=== PATIENT | female | born 1965 | race Caucasian/White ===

== ENCOUNTER 2016-07-29 12:45 | Inpatient (IN) | payer BC ==
[~2016-07-29] VITALS: Ht 162.6 cm; Wt 83.9 kg
--- NOTE | ~2016-07-29 | ECH ---
Transthoracic Echocardiography Report (TTE) Demographics Patient Name REINA LONDON Date of Study 07/31/2016 Patient Number [id number] Visit Number [id number] Date of 1965 Room Number 418 Accession Number [id number] Gender Female Age 51 year(s) Referring Andree Aguilar MD Copy Chief Lili Claros Physician Nathan Bolton RDCS, MD Physician Interpreting Saul KOROMA Hat Mender Physician Gurdeep Supervising Ordering Physician Andree Aguilar MD, MD/P Nurse Stress Engine Turner Conclusions Contractility Score Summary Normal Left Ventricular contractility was noted. Summary Technically good exam. The estimated left ventricular ejection fraction is 65%. The interventricular septum is mildly flattened which is consistent with right ventricular pressure / and or volume overload. The right atrium is mildly dilated. Mild-moderate tricuspid regurgitation by color Doppler. There is moderate pulmonary hypertension. The pulmonary pressure (RVSP) is 48 mmHg. Moderately dilated right ventricle with mildly reduced systolic function. Recommendation The patient will be given the results of this study by the physician who ordered the exam. Procedure Type of Study TTE procedure:Echo Complete SF. Procedure Date Date: 07/31/2016 Start: 11:39 AM Technical Quality: Good visualization Indications:Pulmonary embolus and Elevated Troponin. Appropriate Use Criteria: 9 Height: 64 inches Weight: 186 pounds BSA: 1.9 m Rhythm: Irregular HR: 111 bpm BP: 114/73 mmHg M-Mode/2D Measurements LV Diastolic Dimension: 4.28 cm LV Systolic Dimension: 2.82 cm LV Septum Diastolic: 0.82 cm LV PW Diastolic: 0.78 cm AO Root Dimension: 3.28 cm Cardiac Output: 4.58 l/min LA Dimension: 2.96 cm Cardiac Index: 2.41 l/min*m RV Diastolic Dimension: 4.41 cm LA volume index: 21 ml/m LVOT: 1.96 cm LVOT VTI: 13.69 cm RV Base: 3.2 cm LV Stroke volume: 41.28 ml RV Mid: 42 cm LV Stroke volume index: 21.73 ml/m TAPSE: 1.9 cm TDI-S': 14 cm/s Doppler Measurements AV Peak Velocity: 1.4 m/s MV Peak E-Wave: 0.73 m/s AV Peak Gradient: 7.84 mmHg MV Peak A-Wave: 0.57 m/s AV Mean Gradient: 4.02 mmHg MV E/A Ratio: 1.29 LVOT Peak Velocity: 0.93 m/s MV P1/2t: 43.4 msec AV Area (Continuity):2.02 cm MV Deceleration Time: 149.5 msec TR Velocity:3.26 m/s MV Area (PHT): 5.07 cm TR Gradient:42.51 mmHg PV Peak Velocity: 1.32 m/s Estimated RAP:5 mmHg PV Peak Gradient: 6.97 mmHg Estimated RVSP: 48 mmHg Estimated PASP: 47.51 mmHg E' Septal Velocity: 0.13 m/s A' Lateral Velocity: 0.1 m/s E' Lateral Velocity: 0.13 m/s RA Area: 18.21 cm Findings Left Ventricle Normal left ventricle size and function. Diastolic assessment reveals normal relaxation. The interventricular septum is mildly flattened which is consistent with right ventricular pressure / and or volume overload. Right Ventricle Moderately dilated right ventricle with mildly reduced systolic function. Left Atrium Normal left atrial size. Right Atrium The right atrium is mildly dilated. Mitral Valve Normal mitral valve structure and function. Trivial mitral regurgitation by color Doppler. Aortic Valve Normal aortic valve structure and function. Tricuspid Valve Normal tricuspid valve structure and function. Mild-moderate tricuspid regurgitation by color Doppler. There is moderate pulmonary hypertension. The pulmonary pressure (RVSP) is 48 mmHg. Pulmonic Valve The pulmonic valve is not well visualized. Pericardial Effusion No evidence of pericardial effusion. Miscellaneous Visualized portions of the aortic root appear normal in size. Ascending aorta not well visualized. Pleural Effusion No evidence of pleural effusion. Contractility Score LV regional wall motion:(0-Non visualized 1-Normal 2-Hypokinesis 3-Akinesis 4-Dyskinesis 5-Aneurysm) Signature
[~2016-07-29 12:45] MED LIST: AMITIZA24 MCG PO; CARAFATE DPS1 GM PO; CORTEF10 MG PO; DUAVEE 0.45-201 EACH PO; FLAGYL-DPS500 MG PO; FOLVITE-DPS1 MG PO; NEXIUM40 MG PO; REGLAN DPS5 MG PO; TOPAMAX50 MG PO; VIIBRYD40 MG PO; WELLBUTRIN XL150 MG PO
--- NOTE | 2016-07-30 14:41 | CO ---
ADMIT: 07/29/2016 RM/LOC: 418 [facility] MR#: [id number] [address] [address] [place] [address] Consultation SEX: F AGE: 51 : 1965 DATE OF CONSULTATION: 07/30/2016 ATTENDING PHYSICIAN: Mauricio Candelario CONSULTING PHYSICIAN: Gurdeep Hughes MD REASON FOR CONSULTATION: Elevated troponin and pulmonary embolism. HISTORY OF PRESENT ILLNESS: Reina is a pleasant 51-year-old female, who underwent a knee arthroscopy on , [address] Coates in [place], [place]. She had been feeling well but then awoke Sunday morning about 3:30 a.m. She said she felt very short of breath, she felt lightheaded, she had visual changes and near syncope. She also was having some discomfort on the right side of her chest. She said she let the dog out, she went back to bed and slept for a little while longer and then when she awoke later, they checked her vital signs at home and transported her by squad to the emergency room. There, she was found to have bilateral pulmonary emboli on CAT scan. She has no prior cardiac history. She has a history of adrenal insufficiency. She denies any fever or chills. She has not been having any chest pain prior to the pulmonary emboli. MEDICATIONS: She is on: 1. Viibryd 40 mg p.o. daily. 2. Bupropion 150 mg b.i.d. 3. Topiramate 50 mg b.i.d. 4. Nexium 40 mg daily. 5. Metoclopramide 5 mg p.o. t.i.d. 6. Carafate 1 g p.o. before meals and at bedtime. 7. Hydrocortisone, 30 mg in the morning, 10 mg at night. PAST MEDICAL HISTORY: 1. Anxiety. 2. Adrenal insufficiency. 3. Peptic ulcer disease. 4. Gastritis. 5. Hypertension. 6. Cholecystectomy. SOCIAL HISTORY: She is to Dr. Michelle Blackburn, the pain doctor here in [facility]. She works in the [employer] there. She does not smoke. She uses alcohol socially. FAMILY HISTORY: Family history of sudden in her mother at age 48. She says her mother got out of the shower and collapsed and . REVIEW OF SYSTEMS: GENERAL: Denies any fever, chills, sweats, or recent weight changes. HEENT: Denies any visual changes. No decreased hearing. GI: No nausea, vomiting, or diarrhea. ADMIT: 07/29/2016 RM/LOC: 418 [facility] MR#: [id number] [address] [id number] [place] [address] Consultation SEX: F AGE: 51 : 1965 GENITOURINARY: Denies any dysuria or hematuria. ENDOCRINE: She does have adrenal insufficiency. NEUROLOGIC: No history of TIA or strokes. PSYCHIATRIC: Does have history of depression. Denies any anxiety. SKIN: Denies any rashes. MUSCULOSKELETAL: She has arthritis and had a recent knee arthroscopy. CARDIAC: As per HPI. PULMONARY: No history of pulmonary disease. Does not smoke. Denies any hemoptysis. HEMATOLOGIC/ONCOLOGIC: No history of cancer or bleeding disorder. All other systems are reviewed and negative. PHYSICAL EXAMINATION: VITAL SIGNS: Blood pressure 114/72, pulse is 107 to 120, temperature is 100.3, oxygen 92% on 2 L. GENERAL: She is alert and oriented and conversant. HEENT: Normocephalic, atraumatic. Moist mucous membranes. NECK: Supple. No lymphadenopathy. HEART: Mildly tachycardic, but regular. There is no murmur, rubs, or gallops. LUNGS: Clear to auscultation bilaterally. ABDOMEN: Soft, nontender, and nondistended. EXTREMITIES: No cyanosis, clubbing, or edema. NEUROLOGIC: Cranial nerves II through XII intact. MUSCULOSKELETAL: She has some discomfort in her right chest when she takes a deep breath. DIAGNOSTIC DATA: 3.5, sodium 147, creatinine is 1.0. Glucose 105. Troponin was 0.9, and has decreased to 0.3 this morning. White blood cell count 11.7, hemoglobin 11.3, platelets 197. CTA showed bilateral pulmonary emboli. IMPRESSION AND PLAN: 1. Bilateral pulmonary emboli. ADMIT: 07/29/2016 RM/LOC: 418 [facility] MR#: [id number] [id number] [address] REINA [place] [address] [place] [address] Consultation SEX: F AGE: 51 : 1965 2. Elevated troponin level. 3. Adrenal insufficiency. 4. Family history of sudden in her mother at age 48. RECOMMENDATIONS: She is on heparin and is being transitioned to Xarelto, which I agree with. I believe her elevated troponin level is secondary to RV strain with her pulmonary emboli and her mild tachycardia. She appears hemodynamically stable at this time, but does require continued close monitoring. We will check an echocardiogram. Down the road, you may consider evaluation for hypercoagulable state given her family history of sudden in her mother at age 48, certainly raises a suspicion of a clotting disorder. We will follow along and amend our plan as her care progresses. Gurdeep Hughes MD/ belinda JOB #: [id number] CC: Mauricio Candelario, Attending Physician Mauricio Candelario, Family Physician
[2016-08-02] MEDS ORDERED: BENADRYL-DPS25 MG PO (14:07)
[2016-08-02] MEDS ORDERED: NORCO 5-325 TA1 EACH PO (14:08)
[2016-08-02] MEDS ORDERED: SURFAK DPS240 MG PO (14:08)
[2016-08-02] MEDS ORDERED: MAALOX DPS30 ML PO (14:08)
[2016-08-02] MEDS ORDERED: TYLENOL DPS325 MG PO (14:08)
[2016-08-02] MEDS ORDERED: XARELTO15 MG PO (14:09)
[2016-08-02] MEDS ORDERED: VITAMIN B COMP1 EACH PO (14:10)
[2016-08-02] MEDS ORDERED: LINZESS145 MCG PO (14:10)
--- NOTE | 2016-08-05 08:11 | ER ---
ADMIT: 07/29/2016 RM/LOC: ER [facility] MR#: [id number] [address] [address] [place] [address] Emergency Room Report SEX: F AGE: 51 : 1965 DATE: 07/29/2016 A 51-year-old female, who had arthroscopy done this past , apparently had a syncopal episode at home this morning and is describing right-sided pleuritic chest pain and cough. PHYSICAL EXAMINATION: GENERAL: Reveals a 51-year-old female, in no acute distress. VITAL SIGNS: Her O2 saturations are in the low to mid 90s on room air. LUNGS: Clear to auscultation. CARDIOVASCULAR: Tachycardia. No murmurs, rubs, or gallops. ABDOMEN: Soft. EXTREMITIES: Surgical site appeared with signs of infection or inflammation. CT scan revealed bilateral pulmonary embolism. EKG shows sinus tachycardia. Her white cell count was 1.7, hemoglobin 11.3. Sodium 147, potassium 3.5, glucose 105. The patient is being admitted with bilateral pulmonary embolism and syncopal episode. Andi Poole MD/ belinda JOB #: [id number] CC: Andi Poole MD, Attending Physician
--- NOTE | 2016-08-07 08:28 | HP ---
ADMIT: 07/29/2016 RM/LOC: 418 [facility] MR#: [id number] ACC#: [id number] [id number] [address] [place] [address] History and Physical SEX: F AGE: 51 : 1965 DATE OF SERVICE: 07/29/2016 REASON FOR HOSPITALIZATION: Pulmonary embolism. HISTORY OF PRESENT ILLNESS: This is a 51-year-old female patient, who underwent a knee arthroscopy last by Dr. Coates in [place], [place]. She over the weekend had been doing well and stated that her knee was feeling well, but she developed some swelling and today had chest pain, right chest discomfort with dyspnea and on 2 occasions, she had near-syncopal events. Her family at home took her blood pressure. They opted ultimately to transfer her to the emergency room by cody where she was found promptly to have bilateral pulmonary embolisms on her CAT scan. She does have a history of adrenal insufficiency and reports that she did miss a few doses of her steroid therapy over the weekend. She states that she missed a dose on and 2 doses on Sunday. MEDICATIONS: She normally takes: 1. Viibryd 40 mg p.o. daily. 2. Bupropion XL 150 mg p.o. b.i.d. 3. Topiramate 50 mg p.o. b.i.d. 4. Nexium 40 mg p.o. q.a.m. 5. Metoclopramide 5 mg p.o. t.i.d. 6. Carafate 1 g p.o. before meals and at bedtime. 7. Hydrocortisone 30 mg in the morning and 10 mg in the evening. PAST MEDICAL HISTORY: Does include depression, anxiety, adrenal insufficiency, peptic ulcer disease, gastritis, hypertension, cholecystectomy. SOCIAL HISTORY: Socially, she is , does not smoke. She uses alcohol socially. FAMILY HISTORY: Noncontributory. REVIEW OF SYSTEMS: Chest discomfort. No palpitations. No nausea, vomiting, diarrhea, constipation, bleeding, and she denies any current chest or any current knee pain. PHYSICAL EXAMINATION: GENERAL: She is pleasant. VITAL SIGNS: Her saturation is 95% on room air. She is not dyspneic in conversation. HEART: Regular. LUNGS: Clear. ABDOMEN: Soft. CHEST: She has no dyspnea. She does have some discomfort in her right chest and midsternal area with deep inspiration. ADMIT: 07/29/2016 RM/LOC: 418 [facility] MR#: [id number] [address] [address] REINA LONDON [address] [place] [address] History and Physical SEX: F AGE: 51 : 1965 LABORATORY DATA AND IMAGING: Her hemoglobin is 11.3, white count 11.7, sodium 147, potassium 3.5. CAT scan, bilateral pulmonary embolism. Venous ultrasound is pending. IMPRESSION: 1. Pulmonary embolism. 2. Adrenal insufficiency. PLAN: Admit, heparin, transition to Xarelto. I suspect that her tachycardia and pulmonary embolism have caused some demand ischemia and bump in her troponin. We will repeat cardiac enzymes and check echocardiogram in the morning. I will give her a stress dose of Solu-Medrol. Mauricio Candelario DO/ modl JOB #: [id number] CC: Mauricio Candelario, Attending Physician Mauricio Candelario, Family Physician
--- NOTE | 2016-09-13 08:20 | DS ---
ADMIT: 07/29/2016 RM/LOC: 418 [facility] MR#: [id number] [id number] [address] [place] [address] Discharge Summary SEX: F AGE: 51 : 1965 ADMISSION DATE: 07/29/2016 DISCHARGE DATE: 08/01/2016 REASON FOR HOSPITALIZATION: Pulmonary embolism. HISTORY OF PRESENT ILLNESS: This is a 51-year-old female patient, who recently underwent knee arthroscopy and then developed chest pain, dyspnea, and near syncopal event. She came to our emergency room where she was found to have a pulmonary embolism. She also has a history of depression, anxiety, adrenal insufficiency, peptic ulcer disease, gastritis, hypertension, and prior cholecystectomy. HOSPITAL COURSE: She was admitted to the hospital and was on heparin. We made transition to Xarelto therapy, had her undergo echocardiogram and followup serial cardiac enzymes. Cardiology did see and assist with her evaluation during the hospitalization and it was felt that her troponin elevation was secondary to pulmonary embolism. She did have significant chest pain and discomfort consistent with the pleurisy and pulmonary infarct. We managed this conservatively with pain management. On 07/31, we stopped heparin, started Xarelto, and began making arrangements for home. On 08/01, she was dismissed home with plans to return to see me in 2 to 3 weeks and remain on Xarelto 50 mg p.o. b.i.d. for the first 21 days of her therapy. IMPRESSION: 1. Pulmonary embolism. 2. Elevated cardiac enzymes secondary to demand. 3. Provoked pulmonary embolism secondary to prior knee surgery. Mauricio Candelario DO/ belinda JOB #: [id number] CC: Mauricio Candelario DO, Attending Physician Mauricio Candelario DO, Family Physician
== END 2016-08-01 15:10 | disposition home or self-care (01) | DRG 176 ==
LOC: ER 12:45 → 4PCU 14:15
PROVIDERS: ADMIT Internal Medicine
DX: I26.99 Other pulmonary embolism without acute cor pulmonale (principal); E27.40 Unspecified adrenocortical insufficiency; I10 Essential (primary) hypertension; I82.441 Acute embolism and thrombosis of right tibial vein; I82.491 Acute embolism and thrombosis of other specified deep vein of right lower extremity; R79.89 Other specified abnormal findings of blood chemistry; F32.9 Major depressive disorder, single episode, unspecified; F41.9 Anxiety disorder, unspecified; Z87.11 Personal history of peptic ulcer disease; Z98.890 Other specified postprocedural states; Z96.659 Presence of unspecified artificial knee joint

== ENCOUNTER 2016-08-03 15:21 | Emergency (ER) | payer BC ==
[~2016-08-03 15:21] MED LIST changes: +BENADRYL-DPS25 MG PO; +LINZESS145 MCG PO; +MAALOX DPS30 ML PO; +NORCO 5-325 TA1 EACH PO; +SURFAK DPS240 MG PO; +TYLENOL DPS325 MG PO; +VITAMIN B COMP1 EACH PO; +XARELTO15 MG PO
--- NOTE | 2016-08-12 06:57 | ER ---
ADMIT: 08/03/2016 RM/LOC: ER [facility] MR#: [id number] [address] [address] [place] [address] Emergency Room Report SEX: F AGE: 51 : 1965 DATE: 08/03/2016 See T-sheet for complete H and P. ADDENDUM: A 51-year-old female with a recent diagnosis of DVT and PE presents after she was discharged 2 days ago for what appears to be some increasing pain primarily in the left side of her chest and some increasing dyspnea on exertion. She was discharged 2 days ago and is on Xarelto at this time. She also has a diagnosis of Kishore's disease. On physical exam, she was slightly tachycardic when she arrived at 105, but after she settled in, her heart rate improved and she was not tachycardic the remainder of her stay in the ER. Her sats were 98% initially on room air, and they stayed between 96 to 100 the majority of the time she was here. There was some complaints she might have some increasing pain in her right thigh earlier today, but that was when she was doing exercises for her leg as she had recent knee arthroscopy. When asked here, she has no new pain, swelling, or tenderness in her right thigh. I did get a repeat CT angio of her chest, which shows pulmonary embolus with variable change from previous exam with known pulmonary emboli. She is probably developing infarcts left upper lobe and right lower lobe. No evidence of right heart strain. The results of the CAT scan were explained to the patient and asked if she feels with her increased shortness of breath and chest pain if she would prefer to go home or be admitted at this time and she said she wants to try to go home. I did notify Dr. Diego, who is covering for her primary care physician, Dr. Candelario, this evening and plan at this time is to discharge the patient home to continue her current anticoagulation therapy and her steroids for her Kishore's disease. She is to follow up with Dr. Candelario's office, and she is additionally told she can return to the ER for any concerning symptoms. DIAGNOSES: 1. Pulmonary embolism. 2. Dyspnea on exertion. 3. Chest pain. Romel Weiner MD/ belinda JOB #: [id number] CC: Romel Weiner MD, Attending Physician UNKNOWN, Family Physician
== END 2016-08-03 17:30 | disposition home or self-care (01) ==
LOC: ER 15:21
DX: I26.99 Other pulmonary embolism without acute cor pulmonale (principal); I10 Essential (primary) hypertension; F32.9 Major depressive disorder, single episode, unspecified; F41.9 Anxiety disorder, unspecified; Z88.0 Allergy status to penicillin; Z90.49 Acquired absence of other specified parts of digestive tract

== ENCOUNTER → 2016-08-09 | Outpatient (CLI) | payer BC | END | disposition home or self-care (01) | LOC: RAD.S 14:00 | DX: M79.89 Other specified soft tissue disorders (principal); M79.604 Pain in right leg ==